=== PATIENT | female | born 1985 | race Caucasian/White ===

== ENCOUNTER → 2019-11-04 11:07 | Outpatient (CLI) | payer OTHER, SELFPAY ==
--- NOTE | 2019-11-04 | DI.US.S_ITS ---
PROCEDURE: US OB >= 14 WEEKS FETUS INDICATIONS: 20 WEEK ANATOMICAL SURVEY OUTSIDE/PRIOR DATING DATA: Last menstrual period (LMP): 06/17/19. LMP-based estimated date of delivery (CARLY): 03/23/20. First dating scan (date and location): This study, 11/04/19. Estimated date of delivery (CARLY) from first dating scan: 03/22/20. TECHNIQUE: Real-time scanning was performed of the fetus, with image documentation and biometric measurements. Endovaginal scanning: Not needed. COMPARISON: None. FINDINGS: General: A single living intrauterine gestation is present. Presentation: Variable at this time. Placenta: Placental position is anterior, without previa. Amniotic fluid index: 15.3 cm, normal range is 5-24 cm. heart rate: 155 beats per minute. Maternal cervical canal: 4.5 cm long. Normal lower limit is 2.5 cm. biometrics: Biparietal diameter: 4.6 cm, 19 weeks 5 days Head circumference: 16.6 cm, 19 weeks 2 days Abdominal circumference: 16.4 cm, 21 weeks 3 days Femur length: 3.2 cm, 19 weeks 6 days Estimated gestational age from initial scan: 20 weeks 0 days Composite gestational age from present scan: 20 weeks 1 day Estimated weight and percentile: 360 g, 75th percentile Measurement variability for biometric dating: +/- 7 days from 14 weeks to 15 weeks 6 days gestation, +/- 10 days from 16 weeks to 21 weeks 6 days gestation, +/- 2 weeks from 22 weeks to 27 weeks 6 days gestation, +/- 3 weeks for 28 weeks gestation or later. weight reference: 4500 g or EFW >90/95% is considered macrosomia or large for gestational age. EFW <10% is small for gestational age. EFW 5% or less is considered intra-uterine growth restriction. Anatomic survey: Neuro: Ventricles are non-dilated at less than 10 mm. Cisterna magna is normal at 3-11 mm. Cerebellum is normal in size and morphology. Nuchal skin fold: Normal at less than 6 mm between 14-21 weeks gestational age. Face: Nose and lips, facial profile are normal. Spine: No evidence for spina bifida. Heart: 4-chambered heart is present, with normal ventricular outflow tracts. Diaphragm: Diaphragm is intact. Stomach: Left-sided stomach is present. Kidneys: No hydronephrosis. Normal is less than 5 mm in 2nd trimester, less than 7 mm in 3rd trimester. Cord: 3-vessel cord has orthotopic insertion. Bladder: Normal in size. Extremities: All 4 extremities identified. IMPRESSION: Single living intrauterine gestation currently variable in presentation, with appropriate interval growth from LMP dated, and with delivery date projected to be centered on 03/22/20. No anomaly found. Dictated by: Valdo Abdullahi M.D. on 11/04/2019 at 16:06 Approved by: Valdo Abdullahi M.D. on 11/04/2019 at 16:18
== END ==
PROVIDERS: PCP Registered Nurse; Referring Provider Registered Nurse; Visit Provider Registered Nurse
DX: Z36.89 Encounter for other specified antenatal screening (principal); Z3A.20 20 weeks gestation of pregnancy
CPT/HCPCS: 76811